=== PATIENT | male | born 2000 | race Two or more races ===

== ENCOUNTER → 2024-08-30 | Outpatient (CLI) | payer MEDICAID, SELFPAY ==
--- NOTE | 2024-08-30 09:45 | XR_ITS ---
Examination: Abdomen sonogram, complete Date and time of exam: August 30, 2024 1005 hours INDICATIONS: Nausea vomiting beginning a few months ago. Technique: Multiple real-time grayscale transabdominal sonographic images of the abdomen have been obtained. Findings: Normal gallbladder Normal common bile duct 0.2 cm Pancreatic head 2.0 cm Aorta not enlarged Liver 15.8 cm fatty infiltration smooth contour no focal liver lesions Normal hepatopedal portal venous flow Patent IVC Right kidney 11.5 x 5.8 x 6.7 cm renal cortex 1.9 cm Left kidney 10.6 x 5.0 x 5.7 cm in the cortex 2.1 cm Mild right renal parenchymal scar formation Spleen 12.9 cm IMPRESSION: Normal gallbladder Normal common bile duct Fatty liver
== END | disposition home or self-care (01) ==
LOC: CDIM 09:39
PROVIDERS: Referring Provider Nurse Practitioner Primary Care; Visit Provider Nurse Practitioner Primary Care
DX: R11.2 Nausea with vomiting, unspecified (principal); K76.0 Fatty (change of) liver, not elsewhere classified
CPT/HCPCS: 76700